=== PATIENT | male | born 1995 | race Caucasian/White ===

== ENCOUNTER 2018-07-02 03:59 | Emergency (ER) | payer SELFPAY ==
[~2018-07-02] VITALS: Ht 177.8 cm; Wt 113.4 kg
[2018-07-02 04:03] VITALS: BP 114/57
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
[2018-07-02 04:15] VITALS: BP 114/57
--- NOTE | 2018-07-02 04:15 | NUR ---
PATIENT BIB [facility]. PATIENT EXAMINED BY DR. LOCKE. PATIENT MEDICALLY CLEARED AND RELEASED IN CUSTODY IN STABLE CONDITION. ORIGINAL PRE-BOOK FORM GIVEN TO OFFICER BRISSA #[id number].
== END 2018-07-02 04:15 ==
LOC: MED 03:59
DX: M54.5 Low back pain (principal); Z02.89 Encounter for other administrative examinations; V89.2XXA Person injured in unspecified motor-vehicle accident, traffic, initial encounter; Y93.89 Activity, other specified; Y92.89 Other specified places as the place of occurrence of the external cause; Y99.8 Other external cause status
CPT/HCPCS: 99283